=== PATIENT | female | born 1965 | race Asian ===

== ENCOUNTER 2018-05-25 15:32 | Outpatient (CLI) | payer BC | END 2018-05-25 15:33 | disposition home or self-care (01) | LOC: BICMAMMO 15:32 | PROVIDERS: ATTEND Family Medicine | DX: Z12.31 Encounter for screening mammogram for malignant neoplasm of breast (principal); Z12.4 Encounter for screening for malignant neoplasm of cervix; Z11.51 Encounter for screening for human papillomavirus (HPV) | CPT/HCPCS: 77063; 77067 ==

== ENCOUNTER 2020-07-24 08:17 | Outpatient (CLI) | payer BC ==
--- NOTE | 2020-07-24 09:14 | MMO ---
Bilateral MAMMO Bilat Screen [facility]. CLINICAL HISTORY: Patient is 54 years old and is seen for screening. The patient has no family history of breast cancer. The patient has no personal history of cancer. VIEWS: The views performed were: bilateral craniocaudal with tomosynthesis and bilateral mediolateral oblique with tomosynthesis. FILMS COMPARED: The present examination has been compared to prior imaging studies performed at [facility] on 02/09/2016, 02/25/2017, 05/25/2018 and 05/27/2019. This study has been interpreted with the assistance of computer-aided detection. MAMMOGRAM FINDINGS: The breasts are extremely dense, which may lower the sensitivity of mammography. Benign calcifications are noted bilaterally. There are no suspicious masses, suspicious calcifications, or new areas of architectural distortion. IMPRESSION: THERE IS NO MAMMOGRAPHIC EVIDENCE OF MALIGNANCY. A ROUTINE FOLLOW-UP MAMMOGRAM IN 1 YEAR IS RECOMMENDED. THE RESULTS OF THIS EXAM WERE SENT TO THE PATIENT. ACR BI-RADS Category 2 - Benign finding MAMMOGRAPHY NOTE: 1. A negative mammogram report should not delay a biopsy if a dominant of clinically suspicious mass is present. 2. Approximately 10% to 15% of breast cancers are not detected by mammography. 3. Adenosis and dense breasts may obscure an underlying neoplasm. Reported by: GERMAINE BRAXTON MD Electonically Signed: [id number]
== END 2020-07-24 08:18 | disposition home or self-care (01) ==
LOC: BICMAMMO 08:17
PROVIDERS: ATTEND Family Medicine
DX: Z12.31 Encounter for screening mammogram for malignant neoplasm of breast (principal)
CPT/HCPCS: 77063; 77067

== ENCOUNTER 2021-09-25 08:25 | Outpatient (CLI) | payer BC | END 2021-09-25 08:26 | disposition home or self-care (01) | LOC: BICMAMMO 08:25 | PROVIDERS: ATTEND Family Medicine | DX: Z12.31 Encounter for screening mammogram for malignant neoplasm of breast (principal) | CPT/HCPCS: 77063; 77067 ==

== ENCOUNTER 2022-12-23 10:40 | Outpatient (CLI) | payer BC | END 2022-12-23 10:41 | disposition home or self-care (01) | LOC: SCSRAD 10:40 | PROVIDERS: ATTEND Family Medicine | DX: M17.11 Unilateral primary osteoarthritis, right knee (principal) ==

== ENCOUNTER 2023-02-12 15:26 | Outpatient (CLI) | payer BC | END 2023-02-12 15:27 | disposition home or self-care (01) | LOC: BICMAMMO 15:26 | PROVIDERS: ATTEND Family Medicine | DX: Z12.31 Encounter for screening mammogram for malignant neoplasm of breast (principal) | CPT/HCPCS: 77063; 77067 ==

== ENCOUNTER 2024-03-02 12:44 | Outpatient (CLI) | payer BC | END 2024-03-02 12:45 | disposition home or self-care (01) | LOC: BICMAMMO 12:44 | PROVIDERS: ATTEND Family Medicine | DX: Z12.31 Encounter for screening mammogram for malignant neoplasm of breast (principal) | CPT/HCPCS: 77063; 77067 ==

== ENCOUNTER 2024-09-22 12:19 | Outpatient (CLI) | payer BC | END 2024-09-22 12:20 | disposition home or self-care (01) | LOC: SCSMRI 12:19 | PROVIDERS: ATTEND Family Medicine | DX: R51.9 Headache, unspecified (principal) | CPT/HCPCS: 70553; 76376 ==